=== PATIENT | male | born 1975 | race Caucasian/White ===

== ENCOUNTER 2018-10-03 08:19 | Emergency (ER) | payer BC ==
[2018-10-03 08:37] VITALS: BP 144/74
--- NOTE | 2018-10-03 09:08 | UC ---
Cardiac HPI - HPI Summary HPI Summary: 42 -year-old male whose not felt well the past couple of days. He has been on Augmentin for a tick bite from one week ago. A relative who is a physician started him on that. Patient states yesterday he had a few minutes of chest tightening which radiated to both shoulders and down his left arm which he describes as his left arm feeling warm it also radiated up to his left jaw however he also states that he's had a tooth problem on the left side for a while. He states he was kneeling down at the time of the chest pain became short of breath, he did have some sweating under his armpits did not feel nauseous. There is no family history of heart attacks before the age of 50. He has not had any heart concerns in his lifetime. He has no chronic health problems but he is a smoker. He also wanted the tick bite checked however he's had no fever and no rashes. - History of Current Complaint Chief Complaint: UCGeneralIllness Stated Complaint: TICK BITE, Chest Pain Time Seen by Provider: 10/03/18 08:24 Hx Obtained From: Patient Onset/Duration: Sudden Onset Timing: Constant - The chest pain yesterday which she describes as chest tightness lasted for only a few minutes. Initial Severity: Moderate Current Severity: None Pain Intensity: 0 Chest Pain Location: Upper Sternal, Left Anterior, Right Anterior Character: Tightness Aggravating Factor(s): Nothing Alleviating Factor(s): Nothing Associated Signs & Symptoms: Positive: Chest Pain, SOB, Diaphoresis - Patient states he became sweaty under his armpits. - Risk Factors Pulmonary Embolism Risk Factors: Smoking Cardiac Risk Factors: Smoking - Allergy/Home Medications Allergies/Adverse Reactions: Allergies Allergy/AdvReac Type Severity Reaction Status Date / Time No Known Allergies Allergy Verified 10/03/18 08:28 Home Medications: Home Medications Amoxicillin/Clavulanate TAB* [Augmentin TAB 500 mg*] 500 mg PO TID 10/03/18 [ History Confirmed 10/03/18] PMH/Surg Hx/FS Hx/Imm Hx Previously Healthy: Yes - patient had Lyme disease as a child. Other History Of: Negative For: Anticoagulant Therapy - Surgical History Surgical History: None - Family History Known Family History: Positive: None Negative: Cardiac Disease - Social History Alcohol Use: Rare Substance Use Type: Marijuana Substance Use Comment - Amount & Last Used: daily Smoking Status (MU): Current Every Day Smoker Type: Cigarettes Amount Used/How Often: 1 ppd Length of Time of Smoking/Using Tobacco: 20 years Have You Smoked in the Last Year: Yes Household Exposure Type: Cigarettes Review of Systems All Other Systems Reviewed And Are Negative: Yes ENT: Positive: Dental Pain - Patient states that he has had problems with a left lower tooth. Respiratory: Positive: Negative - Patient has no complaints of chest pain or shortness of breath here however he did have an episode that lasted few minutes yesterday Cardiovascular: Positive: Chest Pain - Patient described the chest pain is chest tightness across his upper chest and into her shoulders with his left arm feeling warm and the tightness radiating up to his left jaw. Is Patient Immunocompromised?: No Physical Exam Triage Information Reviewed: Yes Appearance: Well-Appearing, No Pain Distress, Well-Nourished Vital Signs: Initial Vital Signs Temp 98.8 F 10/03/18 08:30 Pulse 87 10/03/18 08:30 Resp 18 10/03/18 08:30 BP 144/74 10/03/18 08:30 Pulse Ox 100 10/03/18 08:30 Vital Signs Reviewed: Yes Eye Exam: Normal ENT Exam: Normal Neck: Positive: Supple, Nontender, No Lymphadenopathy Respiratory: Positive: Lungs clear, Normal breath sounds, No respiratory distress, No accessory muscle use Cardiovascular: Positive: RRR, No Murmur, Pulses Normal, Brisk Capillary Refill Abdomen Description: Positive: Nontender, No Organomegaly, Soft Bowel Sounds: Positive: Present Musculoskeletal Exam: Normal Neurological Exam: Normal Psychological Exam: Normal Skin: Positive: Other - Patient has a small scabbed area on his left medial thigh where the tick was embedded. I don't believe there is any remnant of the tick. There is no erythema present and is nontender. Diagnostics - EKG Cardiac Rate: NL Cardiac Rhythm: Sinus: Normal Ectopy: None ST Segment: Normal EKG Comparison: No Significant Change - Assessment/Plan Course Of Treatment: The patient is comfortable here and pain-free. His EKG was normal. I believe that he needs to be evaluated in the emergency room today. Patient refuses an ambulance and states he will drive by private car. - Clinical Impression Provider Diagnosis: Chest pain, Tick bite Discharge - Sign-Out/Discharge Documenting (check all that apply): Patient Departure All imaging exams completed and their final reports reviewed: No Studies - Discharge Plan Condition: Fair Disposition: HOME-RECOMMEND TO ED Referrals: No Primary Care Phys,NOPCP [Primary Care Provider] - Additional Instructions: After the evaluation by the nurse practitioner, it is recommended that you go to the emergency room for further evaluation of the chest pain where you should receive additional testing that can be completed in the emergency department. It is recommended that you go directly to the emergency department. This evaluation may include blood work or imaging. This testing will be directed and decided by the provider that evaluates you within the emergency department. If pain becomes worse, you feel lightheaded or you develop chest pain or shortness of breath or have any other concerns while you are driving to the emergency room, please rack puller and call 911. - Billing Disposition and Condition Condition: FAIR Disposition: Home-Recommend to ED - Attestation Statements Provider Attestation: I was available for consult. This patient was seen by the RICHY. The patient was not presented to, seen by, or examined by me. -Enedelia
== END 2018-10-03 09:05 | disposition home health service (06) ==
LOC: UCEAST 08:19
DX: R07.89 Other chest pain (principal); R06.02 Shortness of breath; R61 Generalized hyperhidrosis; S70.362A Insect bite (nonvenomous), left thigh, initial encounter; W57.XXXA Bitten or stung by nonvenomous insect and other nonvenomous arthropods, initial encounter; Y92.9 Unspecified place or not applicable; K08.89 Other specified disorders of teeth and supporting structures; F17.210 Nicotine dependence, cigarettes, uncomplicated
CPT/HCPCS: 99212; G0463

== ENCOUNTER 2018-10-03 09:32 | Emergency (ER) | payer BC ==
--- NOTE | 2018-10-03 10:09 | ED ---
HPI Chest Pain - HPI Summary HPI Summary: A 42 y/o M referred from [facility] [place] presents to ED c/o sudden-onset CP occurring yesterday and spontaneously resolving within 30 minutes. He is currently on Augmentin for a tick bite on LLE 8 days ago. The tick was not engorged and he thinks it attached earlier on the same day he found it. This weekend, he did not feel at baseline and had decreased appetite and slept more than normal. Yesterday afternoon, after his naps, he knelt down and felt a sudden, non- radiating sharp tightness across his chest from shoulder to shoulder. Associated sx: LUE and LLE warmth, SOB lasting 5 minutes. After the sx resolved , he took two baby aspirin, ate and went to sleep. This morning upon waking, he had no chest pain/tightness, but still did not have feel at baseline. He says his "left side just doesnt feel right." He does not have a PCP. Patient states Lyme hx as a child. - History of Current Complaint Chief Complaint: EDChestPainROMI Time Seen by Provider: 10/03/18 10:02 Hx Obtained From: Patient Onset/Duration: Started Days Ago - yesterday, Atraumatic, Resolved Timing: Intermittent, Lasting Minutes - resolved within 30 minutes Initial Severity: Moderate Current Severity: None Pain Intensity: 0 Pain Scale Used: 0-10 Numeric Chest Pain Location: Mid Sternal - across chest Chest Pain Radiates: No Character: Sharp/Stabbing, Tightness Alleviating Factor(s): Spontaneous Resolution Associated Signs and Symptoms: Positive: Shortness of Breath, Other: - pos: LUE and LLE warmth; decreased appetite; excess sleep - Allergy/Home Medications Allergies/Adverse Reactions: Allergies Allergy/AdvReac Type Severity Reaction Status Date / Time No Known Allergies Allergy Verified 10/03/18 08:28 PMH/Surg Hx/FS Hx/Imm Hx Previously Healthy: No - Lyme as a child Endocrine/Hematology History: Denies: Hx Anticoagulant Therapy Cardiovascular History: Denies: Hx Hypertension, Hx Myocardial Infarction Infectious Disease History: No Infectious Disease History: Reports: Hx of Known/Suspected MRSA - had sepsis, History Other Infectious Disease - lyme Denies: Traveled Outside the [place] in Last 30 Days - Family History Known Family History: Negative: Cardiac Disease - Social History Occupation: Employed Full-time Lives: Dormitory/Roommates Alcohol Use: Rare Hx Substance Use: Yes Substance Use Type: Reports: Marijuana Substance Use Comment - Amount & Last Used: daily Hx Tobacco Use: Yes Smoking Status (MU): Current Every Day Smoker Type: Cigarettes Amount Used/How Often: 1 ppd Length of Time of Smoking/Using Tobacco: 20 years Have You Smoked in the Last Year: Yes Review of Systems Positive: Other - pos: LUE/LLE warmth, excess sleep. Positive: Chest Pain - resolved Positive: Shortness Of Breath - resolved Positive: Other - pos: decreased appetite All Other Systems Reviewed And Are Negative: Yes Physical Exam - Summary Physical Exam Summary: Appearance: Well-appearing, Well-nourished, lying in bed comfortably Skin: Warm, dry, no obvious rash Eyes: sclera anicteric, no conjunctival pallor ENT: mucous membranes moist, pharynx appears normal Neck: Supple, nontender Respiratory: Clear to auscultation, no signs of respiratory distress Cardiovascular: Normal S1, S2. No murmurs. Normal distal pulses in tibial and radial bilaterally. Abdomen: Soft, nontender, normal active bowel sounds present Musculoskeletal: Normal, Strength/ROM Intact Neurological: A&Ox3, awake and alert, mentation is normal, speech is fluent and appropriate Psychiatric: affect is normal, does not appear anxious or depressed Triage Information Reviewed: Yes Vital Signs On Initial Exam: Initial Vitals Temp Pulse Resp BP Pulse Ox 98.7 F 87 18 162/89 99 10/03/18 09:43 10/03/18 09:43 10/03/18 09:43 10/03/18 09:43 10/03/18 09:43 Vital Signs Reviewed: Yes Diagnostics - Vital Signs Vital Signs Temp Pulse Resp BP Pulse Ox 10/03/18 09:43 98.7 F 87 18 162/89 99 - Laboratory Lab Statement: Any lab studies that have been ordered have been reviewed, and results considered in the medical decision making process. - EKG 0949 Cardiac Rate: NL - 85 bpm EKG Rhythm: Sinus Rhythm Summary of EKG Findings: NSR at 85 BPM, P waves, QRS complex, and T waves are within normal limits, T waves and intervals are normal, no ischemic changes. This is a normal EKG. Chest Pain Course/Dx - Course Course Of Treatment: Pt is a 42 y/o M c/o sudden-onset, non-radiating, chest tightness from shoulder to shoulder occurring yesterday which resolved within 30 mins. He is on Augmentin for a tick bite on LLE 8 days ago. Associated sx: LUE and LLE warmth and SOB during the chest tightness that have since resolved. He took two baby aspirin, ate and went to sleep. This morning, he denies chest pain/tightness, but still did not have feel at baseline. Troponin is 0.00. EKG shows NSR at 85 BPM, P waves, QRS complex, and T waves are within normal limits , T waves and intervals are normal, no ischemic changes. Will discharge patient home to follow-up with [facility]. - Diagnoses Provider Diagnoses: Chest pain Discharge - Sign-Out/Discharge Documenting (check all that apply): Patient Departure - D/C Patient Received Moderate/Deep Sedation with Procedure: No - Discharge Plan Condition: Good Disposition: HOME Patient Education Materials: Chest Pain (ED) Referrals: [facility] [Outside] - 1 Week Additional Instructions: You should have a primary care doctor for followup. While this bout of chest pain does not appear to be cardiac related, you are of an age to be at risk for heart disease, and of course the smoking also elevates that risk substantially. With respect to your concerns about Lyme Disease, for a tick bite to transmit the bacteria to you it has to be attached for at least 24-48 hours. So I don't think that bite puts you at any significant risk of getting Lyme disease. The titer drawn today also would not be reflective of this exposure as there has not been time enough for your body to react to a recent bite and produce the antibodies that the test measures. At most it could reflect your body's immune response from the prior bout of Lyme disease. - Billing Disposition and Condition Condition: GOOD Disposition: Home - Attestation Statements Document Initiated by Scribe: Yes Documenting Scribe: Carlos Alberto Cardenas Provider For Whom Cassia is Documenting (Include Credential): Dr. Noel Yusuf MD Scribe Attestation: Carlos Alberto Mckay scribed for Dr. Noel Yusuf MD on 10/04/18 at 1117. Scribe Documentation Reviewed: Yes Provider Attestation: The documentation as recorded by the Carlos Alberto dozier accurately reflects the service I personally performed and the decisions made by me, Dr. Noel Yusuf MD Status of Scribe Document: Viewed
[2018-10-03 12:05] VITALS: BP 127/70
== END 2018-10-03 12:07 | disposition home or self-care (01) ==
LOC: ED 09:32
DX: R07.9 Chest pain, unspecified (principal)
CPT/HCPCS: 36415; 84484; 86618; 93005; 99282